=== PATIENT | female | born 1990 | race Caucasian/White ===

== ENCOUNTER 2023-02-26 10:04 | Inpatient (IN) ==
[2023-02-26] MEDS ORDERED: miSOPROStol 100 mcg TAB PO ONE ×4 (11:14→23:53)
[2023-02-26 12:29] LABS: Urine Benzodiazepine Screen None Detected (None Detect); Urine Cannabinoids Screen None Detected (None Detect); Urine Opiates Screen None Detected (None Detect)
[2023-02-27] MEDS ORDERED: Lactated Ringers 1000 ml BAG 1,000 ML IV ONE (07:51)
[2023-02-27] MEDS ORDERED: Witch Hazel PAD JAR TOPICAL PRN (11:40)
[2023-02-27] MEDS ORDERED: Oxytocin 10 UNITS/ML 1 ML VIAL IM ONE (11:40)
[2023-02-27] MEDS ORDERED: Lactated Ringers 1000 ml BAG 1,000 ML IV SCH (12:00)
[2023-02-27] MEDS ORDERED: Lidocaine 1% VIAL 10 MG/ML VIAL 30 ML INJ ONE (16:27)
[2023-02-27] MEDS: Dibucaine 1% OINT 28.35 GM TUBE PR PRN (18:15)
[2023-02-28 06:34] LABS: ABS Monocytes 0.9 10^3/uL (0.0-0.9); ABS Neutrophils 11.2 10^3/uL (1.5-7.6); Eosinophil % 0.2 %; Hematocrit 31.8 % (35-45); Hemoglobin 10.8 g/dL (11.5-14.3); Lymphocyte % 14.3 %; Mean Corpuscular Hemoglobin 29.9 pg (27-33); Mean Platelet Volume 8.5 fL (7.5-11.2); Platelet Count 230 10^3/uL (150-450); Red Blood Count 3.61 10^6/uL (3.63-4.92); Red Cell Distribution Width 15.1 % (12-17); White Blood Count 14.2 10^3/uL (3.8-11.8)
[2023-02-28 09:28] VITALS: BP 136/75
[2023-02-28] MEDS: Dibucaine 1% OINT 28.35 GM TUBE PR PRN (10:57)
== END 2023-02-28 19:22 | disposition home or self-care (01) | DRG 807 ==
LOC: MCHOBOUT 10:04 → MCHOB 10:29
PROVIDERS: ADMIT Midwife; ATTEND Registered Nurse